=== PATIENT | male | born 1995 | race Caucasian/White ===

== ENCOUNTER 2021-10-04 11:38 | Emergency (ER) | payer OTHER ==
[~2021-10-04] VITALS: Ht 190.5 cm; Wt 131.5 kg
--- NOTE | 2021-10-04 11:50 | NUR ---
Pt was triaged and brought back to ER waiting room, there are no ER beds available at this time.
== END 2021-10-04 16:46 | disposition left against medical advice (07) ==
LOC: ER 11:49
DX: Z53.21 Procedure and treatment not carried out due to patient leaving prior to being seen by health care provider (principal)